=== PATIENT | female | born 1975 | race Two or more races ===

== ENCOUNTER 2025-03-04 06:35 | Day surgery (SDC) | payer MEDICAID, SELFPAY ==
[2025-03-03 08:20] VITALS: BMI 45.1
[2025-03-04] VITALS (11 sets, daily range): BP systolic 136–202; BP diastolic 79–104; PULSE 74–89; RESP 15–20; TEMP 36.6–37.1; O2SAT 97–100; BMI 45.3
[2025-03-04] MEDS: DiphenhydrAMINE INJ 50 MG/ML VIAL 25 MG IV (07:31)
[2025-03-04] MEDS: SODIUM CHLORIDE 0.9% 500 ML 500 ML 100 ML IV (07:31)
[2025-03-04] MEDS: fentaNYL CIT INJ 50 mCg/ML AMP 2ML (ASD USE ONLY) IV (07:32)
[2025-03-04] MEDS: MIDAZOLAM INJ 1 MG/ML VIAL 2 ML (ASD USE ONLY) 2 MG IV (07:33)
[2025-03-04] MEDS: hydrALAZINE INJ 20 MG/ML VIAL 10 MG IV (07:43)
== END 2025-03-04 08:15 | disposition home or self-care (01) ==
PROVIDERS: PCP Family Medicine; Referring Provider Surgery; Visit Provider Surgery
PROC: 0DBE8ZX Excision of Large Intestine, Via Natural or Artificial Opening Endoscopic, Diagnostic (ICD-10-PCS; CPT 45380; principal; 2025-03-04 07:30)
DX: K64.1 Second degree hemorrhoids (principal); E11.9 Type 2 diabetes mellitus without complications; E78.5 Hyperlipidemia, unspecified; Z79.85 Long-term (current) use of injectable non-insulin antidiabetic drugs; Z79.84 Long term (current) use of oral hypoglycemic drugs; Z79.899 Other long term (current) drug therapy
CPT/HCPCS: 45378; 81025; J0360; J1200; J2250; J3010; J7040